=== PATIENT | female | born 1960 | race Caucasian/White ===

== ENCOUNTER 2017-03-21 06:22 | Emergency (ER) | payer MEDICARE ==
[2017-03-21] MEDS ORDERED: methylPREDNISolone SOD SUCCI 125 MG/2 ML VIAL IV STA (06:54)
[2017-03-21] MEDS ORDERED: EPINEPHrine 1 MG/ML 1 ML AMP SQ STA (06:54)
[2017-03-21] MEDS ORDERED: ALBUTEROL NEBULIZED 2.5 MG/3 ML INHALATION STA (06:54)
--- NOTE | 2017-03-21 06:56 | ED ---
General Adult HPI - General Source: patient, RN notes reviewed, old records reviewed Mode of arrival: ambulatory Limitations: no limitations <Gabriel Nettles - Last Filed: 03/21/17 06:54> <Brigido Hewitt - Last Filed: 03/21/17 08:14> - General Chief complaint: Upper Respiratory Infection Stated complaint: congestion Time Seen by Provider: 03/21/17 06:50 - History of Present Illness Initial comments: 56-year-old female presenting with 5 day history of dry cough. Patient is also had subjective fever and chills. She was seen in urgent care and diagnosed with viral illness. She has not been an antibiotic. Patient also complains of rhinorrhea, sore throat, generalized body aches. Patient has no known sick contacts. She has no diagnosis of asthma or COPD but she is a current smoker. She is currently trying to quit. No abdominal pain nausea vomiting. No diarrhea. (Gabriel Nettles) - Related Data Home Medications Medication Instructions Recorded Confirmed HYDROcodone/APAP 10-325MG [[place] 1 tab PO Q4HR PRN 03/17/15 04/27/15 10-325] Topiramate [Topamax] 50 mg PO BID PRN 03/17/15 04/27/15 Ibuprofen [Motrin] 800 cap PO Q8HR PRN 04/27/15 04/27/15 Guaifenesin/Dextromethorphan 5 ml PO Q6HR PRN 03/21/17 03/21/17 [Robitussin Cough-Chest Dm Liq] Methocarbamol [Robaxin] 500 mg PO BID PRN 03/21/17 03/21/17 guaiFENesin-DM 600/30MG [Mucinex 1 tab PO Q12HR PRN 03/21/17 03/21/17 Dm] Previous Rx's Medication Instructions Recorded Albuterol Inhaler [Ventolin Hfa 2 puff INHALATION Q4HR PRN #1 03/21/17 Inhaler] inhaler Azithromycin [Zithromax Z-pack] 250 mg PO DIRECTED #6 tab 03/21/17 predniSONE 20 mg PO BID #10 tab 03/21/17 Allergies Allergy/AdvReac Type Severity Reaction Status Date / Time tetracycline AdvReac Nausea & Verified 03/21/17 08:09 Vomiting Review of Systems ROS Other: All systems not noted in ROS Statement are negative. <ThoGabriel Ari - Last Filed: 03/21/17 06:54> ROS Other: All systems not noted in ROS Statement are negative. <HewittBrigido - Last Filed: 03/21/17 08:14> ROS Statement: Those systems with pertinent positive or pertinent negative responses have been documented in the HPI. Past Medical History Additional Past Medical History / Comment(s): BACK PAIN, History of Any Multi-Drug Resistant Organisms: None Reported Additional Past Surgical History / Comment(s): NECK SURGERY, tubal liagation, laproscopic surgery for ovarian cysts, Past Anesthesia/Blood Transfusion Reactions: No Reported Reaction Past Psychological History: Depression Smoking Status: Current every day smoker Past Alcohol Use History: Occasional Past Drug Use History: None Reported - Past Family History Mother Family Medical History: No Reported History Father Additional Family Medical History / Comment(s): lymphoma <PrasanthGabriel alberts - Last Filed: 03/21/17 06:54> General Exam Limitations: no limitations General appearance: alert, in no apparent distress Head exam: Present: atraumatic, normocephalic Eye exam: Present: normal appearance, PERRL ENT exam: Present: normal exam Neck exam: Present: normal inspection. Absent: tenderness, meningismus Respiratory exam: Present: wheezes, prolonged expiratory, other (Bronchospastic cough). Absent: rhonchi Cardiovascular Exam: Present: regular rate, normal rhythm GI/Abdominal exam: Present: soft. Absent: distended, tenderness, guarding Extremities exam: Present: normal inspection, normal capillary refill. Absent: pedal edema Back exam: Present: normal inspection, full ROM. Absent: tenderness Neurological exam: Present: alert, oriented X3, CN II-XII intact. Absent: motor sensory deficit Psychiatric exam: Present: normal affect, normal mood Skin exam: Present: warm, dry, intact. Absent: cyanosis, diaphoretic <Gabriel Nettles - Last Filed: 03/21/17 06:54> Vital Signs 03/21/17 03/21/17 03/21/17 06:28 07:23 07:33 Temperature 98.4 F Pulse Rate 88 72 72 Respiratory 18 Rate Blood Pressure 117/64 O2 Sat by Pulse 96 Oximetry Medical Decision Making <Gabriel Nettles - Last Filed: 03/21/17 06:54> - Lab Data Result diagrams: 03/21/17 07:20 03/21/17 07:20 <Brigido Hewitt - Last Filed: 03/21/17 08:14> - Medical Decision Making Patient reevaluated and resting comfortably in bed. Lung sounds are rhonchorous. No respiratory distress. Patient states she is trying to quit smoking. Patient updated on results and need for follow-up. (Brigido Hewitt) - Lab Data Lab Results 03/21/17 03/21/17 03/21/17 Range/Units 07:20 07:20 07:20 WBC 7.0 (3.8-10.6) k/uL RBC 4.42 (3.80-5.40) m/uL Hgb 14.0 (11.4-16.0) gm/dL Hct 41.9 (34.0-46.0) % MCV 94.7 (80.0-100.0) fL MCH 31.8 (25.0-35.0) pg MCHC 33.5 (31.0-37.0) g/dL RDW 12.6 (11.5-15.5) % Plt Count 246 (150-450) k/uL Neutrophils % 78 % Lymphocytes % 14 % Monocytes % 6 % Eosinophils % 1 % Basophils % 0 % Neutrophils # 5.5 (1.3-7.7) k/uL Lymphocytes # 1.0 (1.0-4.8) k/uL Monocytes # 0.4 (0-1.0) k/uL Eosinophils # 0.1 (0-0.7) k/uL Basophils # 0.0 (0-0.2) k/uL Sodium 142 (137-145) mmol/L Potassium 4.5 (3.5-5.1) mmol/L Chloride 110 H (98-107) mmol/L Carbon Dioxide 25 (22-30) mmol/L Anion Gap 7 mmol/L BUN 17 (7-17) mg/dL Creatinine 0.77 (0.52-1.04) mg/dL Est GFR (MDRD) Af Amer >60 (>60 ml/min/1.73 sqM) Est GFR (MDRD) Non-Af >60 (>60 ml/min/1.73 sqM) Glucose 94 (74-99) mg/dL Calcium 9.8 (8.4-10.2) mg/dL Total Bilirubin 0.4 (0.2-1.3) mg/dL AST 17 (14-36) U/L ALT 30 (9-52) U/L Alkaline Phosphatase 60 (38-126) U/L Total Protein 6.5 (6.3-8.2) g/dL Albumin 4.2 (3.5-5.0) g/dL Influenza Type A RNA Not Detected (Not Detectd) Influenza Type B (PCR) Not Detected (Not Detectd) - Radiology Data Interpreted by me: Chest x-ray shows no definite infiltrate. (Brigido Hewitt) Disposition <Gabriel Nettles - Last Filed: 03/21/17 06:54> Time of Disposition: 08:14 <Brigido Hewitt - Last Filed: 03/21/17 08:14> Clinical Impression: Bronchitis Disposition: HOME SELF-CARE Condition: Stable Instructions: Acute Bronchitis (ED), How to Stop Smoking (ED) Additional Instructions: Please follow-up with primary care physician in the next day or 2 for recheck. Return for difficulty breathing, uncontrolled fevers, worsening symptoms or other concerns. Discontinue smoking. Prescriptions: Albuterol Inhaler [Ventolin Hfa Inhaler] 2 puff INHALATION Q4HR PRN #1 inhaler PRN Reason: Dyspnea Azithromycin [Zithromax Z-pack] 250 mg PO DIRECTED #6 tab predniSONE 20 mg PO BID #10 tab Referrals: Randy Huntley DO [Primary Care Provider] - 1-2 days
[2017-03-21] MEDS ORDERED: IPRATROPIUM 0.5 MG/2.5 ML NEBU INHALATION STA (07:09)
[2017-03-21 07:36] LABS: Basophils % (A) 0 %; Eosinophils # (A) 0.1 k/uL (0-0.7); Eosinophils % (A) 1 %; HCT 41.9 % (34.0-46.0); Lymphocytes % (A) 14 %; MCH 31.8 pg (25.0-35.0); MCHC 33.5 g/dL (31.0-37.0); MCV 94.7 fL (80.0-100.0); Mean Platelet Volume 6.5; Monocytes # (A) 0.4 k/uL (0-1.0); Monocytes % (A) 6 %; Neutrophils # (A) 5.5 k/uL (1.3-7.7); Neutrophils % (A) 78 %; Platelet Count 246 k/uL (150-450); RBC 4.42 m/uL (3.80-5.40); RDW 12.6 % (11.5-15.5)
[2017-03-21 07:47] LABS: ALT 30 U/L (9-52); AST 17 U/L (14-36); Albumin 4.2 g/dL (3.5-5.0); Alkaline Phosphatase 60 U/L (38-126); Anion Gap 7 mmol/L; Blood Urea Nitrogen 17 mg/dL (7-17); Calcium 9.8 mg/dL (8.4-10.2); Carbon Dioxide 25 mmol/L (22-30); Chloride 110 mmol/L (98-107); Glucose 94 mg/dL (74-99); Potassium 4.5 mmol/L (3.5-5.1); Sodium 142 mmol/L (137-145); Total Bilirubin 0.4 mg/dL (0.2-1.3); Total Protein 6.5 g/dL (6.3-8.2)
--- NOTE | 2017-03-21 08:23 | XR ---
EXAMINATION TYPE: XR chest 2V DATE OF EXAM: 03/21/2017 COMPARISON: NONE HISTORY: Cough and congestion for one week per patient. Chest pain per order. TECHNIQUE: Frontal and lateral views of the chest are obtained. FINDINGS: There is no focal air space opacity, pleural effusion, or pneumothorax seen. The cardiac silhouette size is within normal limits. Anterior and posterior fusion hardware in the cervical spine is partially imaged. IMPRESSION: No suspicious acute pulmonary process.
[2017-03-21 08:25] VITALS: BP 103/58; PULSE 74; RESP 16; TEMP 98.3
== END 2017-03-21 08:24 | disposition home or self-care (01) ==
LOC: EC 06:22
DX: J40 Bronchitis, not specified as acute or chronic (principal); F17.200 Nicotine dependence, unspecified, uncomplicated; Z88.1 Allergy status to other antibiotic agents
CPT/HCPCS: 36415; 94640; 80053; 85025; 87502; 71046; 99284; 96374; J2930

== ENCOUNTER 2017-05-11 19:55 | Emergency (ER) | payer MEDICARE ==
[2017-05-11] MEDS ORDERED: SODIUM CHLORIDE 0.9% 1,000 ML IV STA (21:37)
[2017-05-11] MEDS ORDERED: ONDANSETRON 4 MG/2 ML VIAL IVP STA ×2 (21:37→23:52)
[2017-05-11] MEDS ORDERED: MORPHINE SULFATE 4 MG/ML SYRINGE IV STA ×2 (21:37→23:52)
[2017-05-11] MEDS ORDERED: RX INFO: IV CONTRAST WAS GIVEN 1 EACH MISC MISCELLANE PRN (21:37)
--- NOTE | 2017-05-11 21:39 | ED ---
General Adult HPI - General Chief complaint: Abdominal Pain Stated complaint: abdominal pain Time Seen by Provider: 05/11/17 21:31 Source: patient, RN notes reviewed Mode of arrival: ambulatory Limitations: no limitations - History of Present Illness Initial comments: 56-year-old female presents emergency department with a chief complaint of lower abdominal pain. Patient states that she started to have cramping in the lower abdomen this morning. She admits to nausea without vomiting. She states that she has not had any diarrhea. She states that it feels bloated than it is tender. She denies any changes in urination. Patient has not had any fever or chills. She was concerned due to the continued pain with her history so she thought that she should be seen. Patient states that she is not currently having any other symptoms. She states her pain is moderate in the lower abdomen. Patient denies any recent fever, chills, shortness of breath, chest pain, back pain, vomiting, numbness or tingling, dysuria or hematuria, constipation or diarrhea, headaches or visual changes, or any other current symptoms. - Related Data Home Medications Medication Instructions Recorded Confirmed HYDROcodone/APAP 10-325MG [[place] 1 tab PO QID PRN 03/17/15 05/11/17 10-325] Topiramate [Topamax] 50 mg PO BID PRN 03/17/15 05/11/17 Ibuprofen [Motrin] 800 cap PO TID PRN 04/27/15 05/11/17 Methocarbamol [Robaxin] 500 mg PO BID PRN 03/21/17 05/11/17 Previous Rx's Medication Instructions Recorded Ciprofloxacin HCl [Cipro] 500 mg PO Q12HR #14 tablet 05/11/17 Ibuprofen [Motrin] 600 mg PO Q6HR PRN #20 tab 05/11/17 Ondansetron Odt [Zofran ODT] 4 mg PO Q8HR PRN #20 tab 05/11/17 metroNIDAZOLE [Flagyl] 500 mg PO TID #21 tab 05/11/17 Allergies Allergy/AdvReac Type Severity Reaction Status Date / Time tetracycline AdvReac Nausea & Verified 05/11/17 21:18 Vomiting Review of Systems ROS Statement: Those systems with pertinent positive or pertinent negative responses have been documented in the HPI. ROS Other: All systems not noted in ROS Statement are negative. Past Medical History Additional Past Medical History / Comment(s): BACK PAIN, diverticulitis. History of Any Multi-Drug Resistant Organisms: None Reported Additional Past Surgical History / Comment(s): NECK SURGERY, tubal liagation, laproscopic surgery for ovarian cysts, Past Anesthesia/Blood Transfusion Reactions: No Reported Reaction Past Psychological History: Depression Smoking Status: Current every day smoker Past Alcohol Use History: Occasional Past Drug Use History: None Reported - Past Family History Mother Family Medical History: No Reported History Father Additional Family Medical History / Comment(s): lymphoma General Exam - General Exam Comments Initial Comments: General: The patient is awake and alert, in no distress, and does not appear acutely ill. Eye: Pupils are equal, round and reactive to light, extra-ocular movements are intact; there is normal conjunctiva bilaterally. No signs of icterus. Ears, nose, mouth and throat: There are moist mucous membranes and no oral lesions. Neck: The neck is supple, there is no tenderness. Cardiovascular: There is a regular rate and rhythm. No murmur, rub or gallop is appreciated. Respiratory: Lungs are clear to auscultation, respirations are non-labored, breath sounds are equal. No wheezes, stridor, rales, or rhonchi. Gastrointestinal: Soft, non-distended, minimal tenderness to lower quadrants of the abdomen without masses or organomegaly noted. There is no rebound or guarding present. No CVA tenderness. Bowel sounds are unremarkable. Back: There is no tenderness to palpation in the midline. There is no obvious deformity. No rashes noted. Musculoskeletal: Normal ROM, no tenderness, There is no pedal edema. There is no calf tenderness or swelling. Sensation intact. Pulses equal bilaterally 2+. Neurological: CN II-XII intact, There are no obvious motor or sensory deficits. Coordination appears grossly intact. Speech is normal. Skin: Skin is warm and dry and no rashes or lesions are noted. Psychiatric: Cooperative, appropriate mood & affect, normal judgment. Limitations: no limitations Course Vital Signs 05/11/17 05/11/17 20:39 23:39 Temperature 98.7 F 98.7 F Pulse Rate 87 85 Respiratory 24 16 Rate Blood Pressure 112/65 100/57 O2 Sat by Pulse 98 96 Oximetry Medical Decision Making - Medical Decision Making 56-year-old female presents to the emergency department with a chief complaint of abdominal pain. This time patient's lab work, CT, vital signs have been reviewed. Patient is feeling much better in the room. At this time we did discuss that we will start her on antibiotics we discussed using her at home pain medication for pain control. We did discuss that this could worsen and her hospitalization when to return. Patient stated that she understood and she is in agreement with this plan. All questions have been answered. She will be discharged. - Lab Data Result diagrams: 05/11/17 22:00 05/11/17 22:00 Lab Results 05/11/17 05/11/17 05/11/17 Range/Units 22:00 22:00 22:00 WBC 9.7 (3.8-10.6) k/uL RBC 4.41 (3.80-5.40) m/uL Hgb 14.3 (11.4-16.0) gm/dL Hct 40.1 (34.0-46.0) % MCV 90.9 (80.0-100.0) fL MCH 32.4 (25.0-35.0) pg MCHC 35.7 (31.0-37.0) g/dL RDW 12.5 (11.5-15.5) % Plt Count 244 (150-450) k/uL Neutrophils % 78 % Lymphocytes % 14 % Monocytes % 6 % Eosinophils % 1 % Basophils % 0 % Neutrophils # 7.5 (1.3-7.7) k/uL Lymphocytes # 1.4 (1.0-4.8) k/uL Monocytes # 0.6 (0-1.0) k/uL Eosinophils # 0.1 (0-0.7) k/uL Basophils # 0.0 (0-0.2) k/uL PT 9.7 (9.0-12.0) sec INR 1.0 (<1.2) APTT 22.4 (22.0-30.0) sec Sodium 139 (137-145) mmol/L Potassium 3.6 (3.5-5.1) mmol/L Chloride 109 H (98-107) mmol/L Carbon Dioxide 22 (22-30) mmol/L Anion Gap 8 mmol/L BUN 15 (7-17) mg/dL Creatinine 0.60 (0.52-1.04) mg/dL Est GFR (CKD-EPI)AfAm >90 (>60 ml/min/1.73 sqM) Est GFR (CKD-EPI)NonAf >90 (>60 ml/min/1.73 sqM) Glucose 103 H (74-99) mg/dL Plasma Lactic Acid Loc (0.7-2.0) mmol/L Calcium 9.7 (8.4-10.2) mg/dL Total Bilirubin 0.6 (0.2-1.3) mg/dL AST 13 L (14-36) U/L ALT 19 (9-52) U/L Alkaline Phosphatase 64 (38-126) U/L Total Protein 6.4 (6.3-8.2) g/dL Albumin 4.1 (3.5-5.0) g/dL Amylase 36 (30-110) U/L Lipase 22 L (23-300) U/L Urine Color Urine Appearance (Clear) Urine pH (5.0-8.0) Ur Specific [place] (1.001-1.035) Urine Protein (Negative) Urine Glucose (UA) (Negative) Urine Ketones (Negative) Urine Blood (Negative) Urine Nitrite (Negative) Urine Bilirubin (Negative) Urine Urobilinogen (<2.0) mg/dL Ur Leukocyte Esterase (Negative) Urine RBC (0-5) /hpf Urine WBC (0-5) /hpf Ur Squamous Epith Cells (0-4) /hpf Urine Mucus (None) /hpf Urine HCG, Qual (Not Detectd) 05/11/17 05/11/17 05/11/17 Range/Units 22:00 22:34 22:34 WBC (3.8-10.6) k/uL RBC (3.80-5.40) m/uL Hgb (11.4-16.0) gm/dL Hct (34.0-46.0) % MCV (80.0-100.0) fL MCH (25.0-35.0) pg MCHC (31.0-37.0) g/dL RDW (11.5-15.5) % Plt Count (150-450) k/uL Neutrophils % % Lymphocytes % % Monocytes % % Eosinophils % % Basophils % % Neutrophils # (1.3-7.7) k/uL Lymphocytes # (1.0-4.8) k/uL Monocytes # (0-1.0) k/uL Eosinophils # (0-0.7) k/uL Basophils # (0-0.2) k/uL PT (9.0-12.0) sec INR (<1.2) APTT (22.0-30.0) sec Sodium (137-145) mmol/L Potassium (3.5-5.1) mmol/L Chloride (98-107) mmol/L Carbon Dioxide (22-30) mmol/L Anion Gap mmol/L BUN (7-17) mg/dL Creatinine (0.52-1.04) mg/dL Est GFR (CKD-EPI)AfAm (>60 ml/min/1.73 sqM) Est GFR (CKD-EPI)NonAf (>60 ml/min/1.73 sqM) Glucose (74-99) mg/dL Plasma Lactic Acid Loc 0.5 L (0.7-2.0) mmol/L Calcium (8.4-10.2) mg/dL Total Bilirubin (0.2-1.3) mg/dL AST (14-36) U/L ALT (9-52) U/L Alkaline Phosphatase (38-126) U/L Total Protein (6.3-8.2) g/dL Albumin (3.5-5.0) g/dL Amylase (30-110) U/L Lipase (23-300) U/L Urine Color Yellow Urine Appearance Cloudy H (Clear) Urine pH 5.5 (5.0-8.0) Ur Specific [place] 1.020 (1.001-1.035) Urine Protein Trace H (Negative) Urine Glucose (UA) Negative (Negative) Urine Ketones Negative (Negative) Urine Blood Trace H (Negative) Urine Nitrite Negative (Negative) Urine Bilirubin Negative (Negative) Urine Urobilinogen <2.0 (<2.0) mg/dL Ur Leukocyte Esterase Small H (Negative) Urine RBC 1 (0-5) /hpf Urine WBC 4 (0-5) /hpf Ur Squamous Epith Cells 18 H (0-4) /hpf Urine Mucus Many H (None) /hpf Urine HCG, Qual Not Detected (Not Detectd) - Radiology Data Radiology results: report reviewed, image reviewed Disposition Clinical Impression: Acute diverticulitis Disposition: HOME SELF-CARE Condition: Stable Instructions: Diverticulitis (ED), Diverticulitis Diet (ED) Additional Instructions: Please use medication as discussed. Please follow up with family doctor if symptoms have not improved over the next two days. Please return to the emergency room if your symptoms increase or worsen or for any other concerns. Prescriptions: Ciprofloxacin HCl [Cipro] 500 mg PO Q12HR #14 tablet Ibuprofen [Motrin] 600 mg PO Q6HR PRN #20 tab PRN Reason: Pain metroNIDAZOLE [Flagyl] 500 mg PO TID #21 tab Ondansetron Odt [Zofran ODT] 4 mg PO Q8HR PRN #20 tab PRN Reason: Nausea Referrals: Randy Huntley DO [Primary Care Provider] - 1-2 days Time of Disposition: 23:54
[2017-05-11] MEDS ORDERED: MORPHINE SULFATE/PF 10MG/10ML VL IV STA (21:52)
[2017-05-11 22:11] LABS: Basophils % (A) 0 %; Eosinophils # (A) 0.1 k/uL (0-0.7); Eosinophils % (A) 1 %; HCT 40.1 % (34.0-46.0); HGB 14.3 gm/dL (11.4-16.0); Lymphocytes # (A) 1.4 k/uL (1.0-4.8); Lymphocytes % (A) 14 %; MCH 32.4 pg (25.0-35.0); MCHC 35.7 g/dL (31.0-37.0); MCV 90.9 fL (80.0-100.0); Mean Platelet Volume 6.3; Monocytes # (A) 0.6 k/uL (0-1.0); Monocytes % (A) 6 %; Neutrophils # (A) 7.5 k/uL (1.3-7.7); Neutrophils % (A) 78 %; Platelet Count 244 k/uL (150-450); RBC 4.41 m/uL (3.80-5.40); RDW 12.5 % (11.5-15.5); WBC 9.7 k/uL (3.8-10.6)
[2017-05-11 22:19] LABS: Partial Thromboplastin Time 22.4 sec (22.0-30.0); Prothrombin Time 9.7 sec (9.0-12.0)
[2017-05-11 22:22] LABS: ALT 19 U/L (9-52); AST 13 U/L (14-36); Albumin 4.1 g/dL (3.5-5.0); Alkaline Phosphatase 64 U/L (38-126); Amylase 36 U/L (30-110); Anion Gap 8 mmol/L; Blood Urea Nitrogen 15 mg/dL (7-17); Calcium 9.7 mg/dL (8.4-10.2); Carbon Dioxide 22 mmol/L (22-30); Chloride 109 mmol/L (98-107); Glucose 103 mg/dL (74-99); Lipase 22 U/L (23-300); Potassium 3.6 mmol/L (3.5-5.1); Sodium 139 mmol/L (137-145); Total Bilirubin 0.6 mg/dL (0.2-1.3); Total Protein 6.4 g/dL (6.3-8.2)
[2017-05-11 23:08] LABS: Appearance,Urine Cloudy (Clear); Bilirubin,Urine Negative (Negative); Blood,Urine Trace (Negative); Color,Urine Yellow; Glucose,Urine (UA) Negative (Negative); Ketones,Urine Negative (Negative); Leukocyte Esterase,Urine Small (Negative); Mucus,Urine Many /hpf; Nitrite,Urine Negative (Negative); PH, Urine 5.5 (5.0-8.0); Protein,Urine Trace (Negative); RBC,Urine 1 /hpf (0-5); Squamous Epithelial Cell,Urine 18 /hpf (0-4); Urobilinogen,Urine <2.0 mg/dL (<2.0); WBC,Urine 4 /hpf (0-5)
[2017-05-11 23:39] VITALS: RESP 16
--- NOTE | 2017-05-11 23:39 | CT ---
EXAMINATION TYPE: CT abdomen pelvis w con DATE OF EXAM: 05/11/2017 COMPARISON: 03/17/2015 HISTORY: Lower abd pain CT DLP: 944 mGycm Automated exposure control for dose reduction was used. TECHNIQUE: Helical acquisition of images was performed from the lung bases through the pelvis. CONTRAST: Performed without Oral Contrast and with IV Contrast, patient injected with 100 mL of Omnipaque 300. FINDINGS: There is some linear density at the posterior lung bases. There is no pulmonary consolidation. There is no pleural effusion. Heart size is normal. There is a less than 1 cm cyst in several locations in the liver. Spleen appears normal. There is no sign of pancreatic mass. Gallbladder appears normal. Bile ducts are not dilated. There is no adrenal mass. The kidneys show satisfactory contrast opacification. There is no hydroneph rosis. Abdominal aorta is atheromatous. There is no retroperitoneal adenopathy. There is fat stranding around the proximal sigmoid colon. There are multiple diverticula in the proxi mal sigmoid colon and descending colon. I see no sign of free air. There is a mild amount of free flu id in the pelvis. The appendix appears normal. The uterus is anteverted and retroflexed. There are multiple small calcified uterine fibroids. I see no focal bony destructive process. There is no evidence of a pelvic mass. IMPRESSION: THERE IS EVIDENCE OF DIVERTICULITIS IN THE LOWER DESCENDING COLON AND PROXIMAL SIGMOID COLON THAT IS NEW COMPARED TO OLD EXAM. THERE IS CLEARING OF THE DIVERTICULITIS IN THE MID DESCENDING COLON COMPARE D TO OLD EXAM. THERE IS MILD FREE FLUID IN THE PELVIS THAT IS INCREASED COMPARED TO OLD EXAM. UTERINE FIBROIDS. SMAL L HEPATIC CYSTS. THERE IS NEW SUBSEGMENTAL ATELECTASIS AT THE LUNG BASES COMPARED TO OLD EXAM.
[2017-05-11] MEDS ORDERED: metroNIDAZOLE 500 MG TAB PO STA (23:52)
[2017-05-11] MEDS ORDERED: CIPROFLOXACIN HCL 500 MG TAB PO STA (23:52)
[2017-05-12] MEDS ORDERED: MORPHINE SULFATE/PF 10MG/10ML VL IV STA (00:29)
[2017-05-12 00:58] VITALS: BP 107/53; PULSE 78; TEMP 98.3
== END 2017-05-12 00:57 | disposition home or self-care (01) ==
LOC: EC 19:55
DX: K57.92 Diverticulitis of intestine, part unspecified, without perforation or abscess without bleeding (principal); F17.200 Nicotine dependence, unspecified, uncomplicated; Z88.1 Allergy status to other antibiotic agents; Z53.20 Procedure and treatment not carried out because of patient's decision for unspecified reasons; Z53.8 Procedure and treatment not carried out for other reasons
CPT/HCPCS: 36415; 80053; 82150; 83605; 83690; 85025; 85610; 85730; 81001; 81025; 87040; 74177; 99284; 96374; 96375; 96376; 96361; J2405 ×2; Q9967; J2270

== ENCOUNTER 2017-11-07 08:12 | Observation (INO) | payer MEDICARE ==
--- NOTE | 2017-11-07 08:44 | ED ---
General Adult HPI - General Chief complaint: Chest Pain Stated complaint: Chest Pain Source: patient Mode of arrival: wheelchair Limitations: no limitations - History of Present Illness Initial comments: Dictation was produced using [employer] dictation software. please excuse any grammatical, word or spelling errors. Chief Complaint: 57-year-old female with past medical history of tobacco abuse and chronic neck pain presents with chest pain. History of Present Illness: Patient states her chest pain as sharp. She states it's constant without any exacerbating or mitigating factors. She reports that she's been having on-and-off episodes of chest pain over the last 3 days. States that the pain is located to the anterior chest with radiation to the left upper neck.. Denies any paresthesias to the shoulder. She does not complain of associated nausea, vomiting or diaphoresis. Denies any cardiac history. She does have family history of cardiac disease amongst her paternal side. There is history of an uncle who had stroke and other cardiac disease before the age of 45. Patient is a chronic tobacco user. The ROS documented in this emergency department record has been reviewed and confirmed by me. Those systems with pertinent positive or negative responses have been documented in the HPI. All other systems are other negative and/or noncontributory. - Related Data Home Medications Medication Instructions Recorded Confirmed HYDROcodone/APAP 10-325MG [[place] 1 tab PO QID PRN 03/17/15 11/07/17 10-325] Ibuprofen [Motrin] 800 cap PO TID PRN 04/27/15 11/07/17 Methocarbamol [Robaxin] 500 mg PO TID PRN 03/21/17 11/07/17 Butalb/Acetaminophen/Caffeine 1 cap PO Q8H PRN 11/07/17 11/07/17 [Fioricet 50-300-40 mg Capsule] Allergies Allergy/AdvReac Type Severity Reaction Status Date / Time tetracycline AdvReac Nausea & Verified 11/07/17 08:50 Vomiting Review of Systems ROS Statement: Those systems with pertinent positive or pertinent negative responses have been documented in the HPI. ROS Other: All systems not noted in ROS Statement are negative. Past Medical History Additional Past Medical History / Comment(s): BACK PAIN, diverticulitis. History of Any Multi-Drug Resistant Organisms: None Reported Additional Past Surgical History / Comment(s): NECK SURGERY, tubal liagation, laproscopic surgery for ovarian cysts, Past Anesthesia/Blood Transfusion Reactions: No Reported Reaction Past Psychological History: Depression Smoking Status: Current every day smoker Past Alcohol Use History: Occasional Past Drug Use History: None Reported - Past Family History Mother Family Medical History: No Reported History Father Additional Family Medical History / Comment(s): lymphoma General Exam - General Exam Comments Initial Comments: PHYSICAL EXAM: General Impression: Alert and oriented x3, not in acute distress HEENT: Normocephalic atraumatic, extra-ocular movements intact, pupils equal and reactive to light bilaterally, mucous membranes moist. Cardiovascular: Heart regular rate and rhythm, S1&S2 audible, no murmurs, rubs or gallops Chest: Lungs clear to auscultation bilaterally, no rhonchi, no wheeze, no rales Abdomen: Bowel sounds present, abdomen soft, non-tender, non-distended, no organomegaly Musculoskeletal: Pulses present and equal in all extremities, no peripheral edema Motor: Power 5/5 bilaterally, no focal deficits noted Neurological: CN II-XII grossly intact, no focal motor or sensory deficits noted Skin: Intact with no visualized rashes Psych: Normal affect and mood Limitations: no limitations Course Vital Signs 11/07/17 11/07/17 11/07/17 08:20 09:10 10:00 Temperature 99.2 F Pulse Rate 80 75 72 Respiratory 20 18 20 Rate Blood Pressure 130/77 132/74 107/66 O2 Sat by Pulse 100 99 98 Oximetry Medical Decision Making - Medical Decision Making ED course: 57-year-old female presents with atypical chest pain. She does however have multiple risk factors signs upon arrival are within acceptable limits. Laboratory evaluation obtained. CBC is unremarkable. Coag panel is unremarkable. Metabolic panel obtained showing findings within acceptable limits. Abdominal labs negative. First set of cardiac enzymes are negative. Clinical decision making was explained to the patient. Patient has multiple risk factors. Her clinical presentation is consistent with atypical chest pain with typical features. She does have extensive history of smoking. Discussed with patient disposition plans. Discussed with patient that our recommendation would be to have her admitted to observation for serial troponins given that patient's age and risk factors. Alternative was discussed patient to be discharged for outpatient management. She opted for observation admission with serial troponins. Patient given aspirin. She is given Toradol shot for pain control. Patient admitted to observation for serial troponins. Patient understandable and agreeable to plan. All questions and concerns were addressed. EKG Interpretation: A 12 lead EKG was obtained. It was interpreted by myself and attending physician. There is a P wave before every QRS complex. Rate is 79. Rhythm is normal sinus rhythm,. Interval 132, QRS 72, QTc 444. QT is not prolonged. No ST segment depression or elevation. No old EKG for comparison. Overall, this EKG is unremarkable - Lab Data Result diagrams: 11/07/17 08:35 11/07/17 08:35 Lab Results 11/07/17 11/07/17 11/07/17 Range/Units 08:35 08:35 08:35 WBC 4.5 (3.8-10.6) k/uL RBC 4.54 (3.80-5.40) m/uL Hgb 14.4 (11.4-16.0) gm/dL Hct 43.1 (34.0-46.0) % MCV 94.9 (80.0-100.0) fL MCH 31.8 (25.0-35.0) pg MCHC 33.5 (31.0-37.0) g/dL RDW 13.1 (11.5-15.5) % Plt Count 262 (150-450) k/uL Neutrophils % 68 % Lymphocytes % 21 % Monocytes % 8 % Eosinophils % 1 % Basophils % 1 % Neutrophils # 3.1 (1.3-7.7) k/uL Lymphocytes # 1.0 (1.0-4.8) k/uL Monocytes # 0.3 (0-1.0) k/uL Eosinophils # 0.1 (0-0.7) k/uL Basophils # 0.0 (0-0.2) k/uL PT (9.0-12.0) sec INR (<1.2) APTT (22.0-30.0) sec Sodium 142 (137-145) mmol/L Potassium 4.1 (3.5-5.1) mmol/L Chloride 110 H (98-107) mmol/L Carbon Dioxide 25 (22-30) mmol/L Anion Gap 7 mmol/L BUN 13 (7-17) mg/dL Creatinine 0.68 (0.52-1.04) mg/dL Est GFR (CKD-EPI)AfAm >90 (>60 ml/min/1.73 sqM) Est GFR (CKD-EPI)NonAf >90 (>60 ml/min/1.73 sqM) Glucose 90 (74-99) mg/dL Calcium 9.4 (8.4-10.2) mg/dL Magnesium 2.1 (1.6-2.3) mg/dL Total Bilirubin 0.4 (0.2-1.3) mg/dL AST 17 (14-36) U/L ALT 28 (9-52) U/L Alkaline Phosphatase 56 (38-126) U/L Total Creatine Kinase 55 (30-135) U/L CK-MB (CK-2) 0.6 (0.0-2.4) ng/mL CK-MB (CK-2) Rel Index 1.1 Troponin I <0.012 (0.000-0.034) ng/mL Total Protein 6.3 (6.3-8.2) g/dL Albumin 4.0 (3.5-5.0) g/dL 11/07/17 Range/Units 08:35 WBC (3.8-10.6) k/uL RBC (3.80-5.40) m/uL Hgb (11.4-16.0) gm/dL Hct (34.0-46.0) % MCV (80.0-100.0) fL MCH (25.0-35.0) pg MCHC (31.0-37.0) g/dL RDW (11.5-15.5) % Plt Count (150-450) k/uL Neutrophils % % Lymphocytes % % Monocytes % % Eosinophils % % Basophils % % Neutrophils # (1.3-7.7) k/uL Lymphocytes # (1.0-4.8) k/uL Monocytes # (0-1.0) k/uL Eosinophils # (0-0.7) k/uL Basophils # (0-0.2) k/uL PT 9.5 (9.0-12.0) sec INR 0.9 (<1.2) APTT 22.4 (22.0-30.0) sec Sodium (137-145) mmol/L Potassium (3.5-5.1) mmol/L Chloride (98-107) mmol/L Carbon Dioxide (22-30) mmol/L Anion Gap mmol/L BUN (7-17) mg/dL Creatinine (0.52-1.04) mg/dL Est GFR (CKD-EPI)AfAm (>60 ml/min/1.73 sqM) Est GFR (CKD-EPI)NonAf (>60 ml/min/1.73 sqM) Glucose (74-99) mg/dL Calcium (8.4-10.2) mg/dL Magnesium (1.6-2.3) mg/dL Total Bilirubin (0.2-1.3) mg/dL AST (14-36) U/L ALT (9-52) U/L Alkaline Phosphatase (38-126) U/L Total Creatine Kinase (30-135) U/L CK-MB (CK-2) (0.0-2.4) ng/mL CK-MB (CK-2) Rel Index Troponin I (0.000-0.034) ng/mL Total Protein (6.3-8.2) g/dL Albumin (3.5-5.0) g/dL Disposition Clinical Impression: Chest pain Disposition: ADMITTED IP TO THIS HOSP Condition: Fair Referrals: Randy Huntley DO [Primary Care Provider] - 1-2 days Decision Time: 10:50
[2017-11-07 08:51] LABS: Basophils % (A) 1 %; Eosinophils # (A) 0.1 k/uL (0-0.7); Eosinophils % (A) 1 %; HCT 43.1 % (34.0-46.0); HGB 14.4 gm/dL (11.4-16.0); Lymphocytes % (A) 21 %; MCH 31.8 pg (25.0-35.0); MCHC 33.5 g/dL (31.0-37.0); MCV 94.9 fL (80.0-100.0); Mean Platelet Volume 6.3; Monocytes # (A) 0.3 k/uL (0-1.0); Monocytes % (A) 8 %; Neutrophils # (A) 3.1 k/uL (1.3-7.7); Neutrophils % (A) 68 %; Platelet Count 262 k/uL (150-450); RBC 4.54 m/uL (3.80-5.40); RDW 13.1 % (11.5-15.5); WBC 4.5 k/uL (3.8-10.6)
--- NOTE | 2017-11-07 08:56 | XR ---
EXAMINATION TYPE: XR chest 2V DATE OF EXAM: 11/07/2017 COMPARISON: 03/21/2017 INDICATION: Chest pain TECHNIQUE: Frontal and lateral views of the chest are obtained. FINDINGS: The heart size is normal. The pulmonary vasculature is normal. The lungs are clear. IMPRESSION: 1. No acute pulmonary process.
[2017-11-07 08:57] LABS: ALT 28 U/L (9-52); AST 17 U/L (14-36); Alkaline Phosphatase 56 U/L (38-126); Anion Gap 7 mmol/L; Blood Urea Nitrogen 13 mg/dL (7-17); Calcium 9.4 mg/dL (8.4-10.2); Carbon Dioxide 25 mmol/L (22-30); Chloride 110 mmol/L (98-107); Glucose 90 mg/dL (74-99); Magnesium 2.1 mg/dL (1.6-2.3); Potassium 4.1 mmol/L (3.5-5.1); Sodium 142 mmol/L (137-145); Total Bilirubin 0.4 mg/dL (0.2-1.3); Total Protein 6.3 g/dL (6.3-8.2)
[2017-11-07 09:03] LABS: INR 0.9 (<1.2); Partial Thromboplastin Time 22.4 sec (22.0-30.0); Prothrombin Time 9.5 sec (9.0-12.0)
[2017-11-07 09:18] LABS: Creatine Kinase 55 U/L (30-135)
[2017-11-07 09:30] LABS: Creatine Kinase MB 0.6 ng/mL (0.0-2.4); Troponin I <0.012 ng/mL (0.000-0.034)
[2017-11-07] MEDS ORDERED: ASPIRIN 81 MG PO STA (10:47)
[2017-11-07] MEDS ORDERED: KETOROLAC 30 MG/ML 1 ML VIAL IVP STA (10:48)
[2017-11-07] MEDS ORDERED: NITROGLYCERIN SL TABS 0.4 MG TAB SUBLINGUAL PRN (10:48)
[2017-11-07] MEDS ORDERED: METHOCARBAMOL 500 MG TAB PO PRN (15:06)
[2017-11-07] MEDS ORDERED: IBUPROFEN 800 MG TAB PO PRN (15:06)
[2017-11-07] MEDS ORDERED: BUTALB/APAP/CAFF 50-325-40MG TAB PO PRN (15:06)
[2017-11-07] MEDS: HYDROcodone/APAP 10-325MG 1 EACH TAB PO PRN (15:14)
[2017-11-07 16:03] LABS: Creatine Kinase 44 U/L (30-135)
[2017-11-07 16:12] LABS: Creatine Kinase MB 0.4 ng/mL (0.0-2.4); Troponin I <0.012 ng/mL (0.000-0.034)
[2017-11-07] MEDS ORDERED: HYDROmorphone 1 MG/ML 1 ML SYRINGE IVP PRN (17:26)
[2017-11-07] MEDS ORDERED: diphenhydrAMINE 50 MG/ML 1 ML VIAL IVP PRN (17:26)
[2017-11-07] MEDS ORDERED: HEPARIN SODIUM,PORCINE 5,000 UNIT/ML 1 ML VIAL IV PRN (17:40)
[2017-11-07] MEDS ORDERED: HEPARIN SODIUM,PORCINE 5,000 UNIT/ML 1 ML VIAL IV ONE (17:40)
[2017-11-07] MEDS ORDERED: ALPRAZolam 0.25 MG TAB PO PRN (17:41)
[2017-11-07] MEDS ORDERED: TEMAZEPAM 15 MG CAP PO PRN (17:41)
[2017-11-07] MEDS ORDERED: HEPARIN SOD,PORK IN 0.45% NACL 25,000 UNIT in 0.45% NACL 1 500ML.BAG IV SCH (17:45)
--- NOTE | 2017-11-07 18:12 | HP ---
HISTORY AND PHYSICAL CHIEF COMPLAINTS: Chest pain. HISTORY OF PRESENT ILLNESS: This 57-year-old woman with past medical history of asthma, GERD, DJD, history of pneumonia, being followed by Dr. Huntley in the outpatient setting was complaining of severe chest pain. The pain is felt in the lower part of the chest which is a pressure type of pain which is radiating to both lower parts of the chest, and the pain is excruciating and the pain is on and off for the last 3 days. Because of increasing difficulty, the patient came to [facility] and admitted to the hospital for further evaluation and treatment. Pain is radiating sometimes in the left upper neck, also some. Otherwise, there is no history of nausea, vomiting. No history of any diaphoresis at this time. Patient is complaining of significant stress also. Initial troponins are negative. EKG shows some ST-T changes. PAST MEDICAL HISTORY: Asthma, GERD, history of pneumonia, history of depression, history of diverticulitis. MEDICATIONS ARE: 1. Robaxin 500 mg t.i.d. p.r.n. 2. Fioricet 1 capsule q8h p.r.n. 3. Motrin 800 mg t.i.d. p.r.n. 4. [place] 10 mg q.i.d. p.r.n. ALLERGIES: TETRACYCLINE. FAMILY HISTORY: Family history of hypertension, history of lymphoma in the father, history of CHF, history of coronary artery disease in father and brother. SOCIAL HISTORY: History of smoking. Occasional alcohol intake. REVIEW OF SYSTEMS: ENT: No diminished vision. No diminished hearing. CARDIOVASCULAR: As mentioned earlier. RESPIRATORY: As mentioned earlier. GI: No nausea or vomiting. no dysuria. Nervous system: No numbness or weakness. Allergy/Immunology: No asthma or hayfever. Musculoskeletal: As mentioned earlier. Hematology/Oncology: No history of anemia. Endocrine: No history of diabetes or hypothyroidism. Constitutional: As mentioned earlier. Dermatology: Negative. Rheumatology: Negative. Psychiatry: As mentioned earlier. PHYSICAL EXAMINATION: Alert and oriented times three. Pulse 75. Blood pressure 88/56, respiration 18, temperature 98.4, pulse ox 94% on room air. HEENT: Conjunctivae normal. Oral mucosa moist. Neck is no jugular venous distention. No carotid bruit. No lymph node enlargement. Cardiac system: S1, S2. Respiratory: Breath sounds diminished in the bases. No rhonchi. No crackles. ABDOMEN: Soft, minimal tenderness in the epigastrium. Otherwise no guarding, no rigidity. No mass palpable. Legs no edema, no swelling. Nervous system: Higher functions as mentioned earlier. Moves all 4 limbs. No focal motor or sensory deficits. Lymphatics: No lymph nodes palpable in the neck, axillae or groin. SKIN: No ulcer, rash or bleeding. LABS: CBC within normal limits and chloride is 110. Troponins are negative. EKG reviewed. Chest x-ray reviewed and showed no acute abnormality. ASSESSMENT: 1. Chest pain possible unstable angina. 2. Epigastric pain, rule out gastroesophageal reflux disease. 3. History of ongoing nicotine dependence. 4. History of asthma. 5. Gastroesophageal reflux disease. 6. Degenerative joint disease. 7. History pneumonia. 8. History of diverticulitis. 9. History of chronic pain, degenerative joint disease of the cervical spine. 10.History of macular degeneration. 11.Glaucoma. 12.History of depression. RECOMMENDATIONS AND DISCUSSION: In this 57-year-old woman who presented with multiple complex medical issues, we will monitor the patient closely, continue the current medications, management and symptomatic treatment. I would recommend rule out myocardial infarction, unstable angina protocol, IV heparin and cardiology consultation. Other than that, I would also recommend ultrasound of the abdomen also to rule out the possibly gallbladder pathology. Proton pump inhibitors may be used. Overall prognosis guarded because of multiple complex medical issues. See orders for details. Further recommendations to follow. Discussed at length with the family. Understands and agrees. MMODL / IJN: [id number] /
[2017-11-07] MEDS: NICOTINE 14MG/24HR PATCH TRANSDERM SCH (18:22)
[2017-11-07] MEDS: PANTOPRAZOLE 40 MG/10 ML VIAL IVP SCH (19:59)
[2017-11-07 20:31] LABS: Creatine Kinase 42 U/L (30-135)
[2017-11-07 20:42] LABS: Creatine Kinase MB 0.5 ng/mL (0.0-2.4); Troponin I <0.012 ng/mL (0.000-0.034)
[2017-11-08 00:23] LABS: Creatine Kinase 39 U/L (30-135)
[2017-11-08 00:36] LABS: Creatine Kinase MB 0.4 ng/mL (0.0-2.4); Troponin I <0.012 ng/mL (0.000-0.034)
--- NOTE | 2017-11-08 08:06 | US ---
EXAMINATION TYPE: US abdomen limited DATE OF EXAM: 11/08/2017 COMPARISON: CT 2018 CLINICAL HISTORY: epigastric pain. Chest and epigastric pain x 3 days EXAM MEASUREMENTS: Liver Length: 12.2 cm Gallbladder Wall: 0.2 cm CBD: 0.6 cm Right Kidney: 9.9 x 4.4 x 4.0 cm Pancreas: visualized portions wnl, head and tail limited by overlying midline bowel gas, duct seen m easuring 0.3cm Liver: 1.0 x 0.7cm small cystic lesion seen left lobe, otherwise liver appears wnl Gallbladder: wnl Evidence for sonographic Haung's sign: no CBD: measures in upper limits of normal at 0.6cm Right Kidney: wnl Limited views of the pancreas are unremarkable. The liver is normal in size without biliary dilatation. The gallbladder is unremarkable without cholelithiasis. The gallbladder wall measures 2 mm. The dista l common hepatic duct measures 6 mm. There is no sonographic Huang's sign. The right kidney is unremarkable. IMPRESSION: UNREMARKABLE RIGHT UPPER QUADRANT ULTRASOUND.
[2017-11-08 08:18] LABS: Basophils % (A) 1 %; Eosinophils # (A) 0.1 k/uL (0-0.7); Eosinophils % (A) 3 %; HCT 42.2 % (34.0-46.0); HGB 14.1 gm/dL (11.4-16.0); Lymphocytes # (A) 1.2 k/uL (1.0-4.8); Lymphocytes % (A) 33 %; MCH 31.9 pg (25.0-35.0); MCHC 33.4 g/dL (31.0-37.0); MCV 95.5 fL (80.0-100.0); Mean Platelet Volume 6.7; Monocytes # (A) 0.2 k/uL (0-1.0); Monocytes % (A) 6 %; Neutrophils % (A) 56 %; Platelet Count 247 k/uL (150-450); RBC 4.42 m/uL (3.80-5.40); RDW 12.9 % (11.5-15.5); WBC 3.6 k/uL (3.8-10.6)
[2017-11-08 08:30] LABS: Anion Gap 6 mmol/L; Blood Urea Nitrogen 19 mg/dL (7-17); Calcium 9.1 mg/dL (8.4-10.2); Carbon Dioxide 26 mmol/L (22-30); Chloride 110 mmol/L (98-107); Cholesterol 215 mg/dL (<200); Glucose 85 mg/dL (74-99); HDL Cholesterol 63 mg/dL (40-60); LDL Cholesterol,Calculated 135 mg/dL (0-99); Potassium 4.3 mmol/L (3.5-5.1); Sodium 142 mmol/L (137-145); Triglycerides 86 mg/dL (<150)
[2017-11-08] MEDS ORDERED: MAG HYDROX/AL HYDROX/SIMETH 30 ML, HYOSCYAMINE ELIXIR 10 ML, CIMETIDINE HCL 300 MG, LID... PO ONE ×4 (08:45)
[2017-11-08] MEDS ORDERED: ASPIRIN 325 MG TAB PO SCH (09:00)
--- NOTE | 2017-11-08 09:32 | P.CRDCN ---
History of Present Illness History of present illness: This is Dr. Thomas dictating a consult on this patient The patient was interviewed and examined by me IMPRESSION / ASSESSMENT: No evidence for acute myocardial infarction Likely noncardiac pain D-dimer is are also normal Suggest trying a GI cocktail Upper back exercises 2-D echo and Doppler study today PLAN: 2-D echo and Doppler study Follow-up with Dr. Gaviria May go home from a cardiac standpoint HPI Recurrent chest discomfort almost continuous for the last 3-4 days tenderness in the costochondral junctions discomfort in the upper and mid back, interscapular. No other associated symptoms normal cardiac enzymes Past history of asthma depression never to colitis and fibromyalgia and neck surgery as well as GERD She states it feels like a heartburn ROS: No fever chills or rigors, no cough, phlegm or expectoration, no nausea, vomiting or diarrhea, no hematuria, dysuria, no musculoskeletal complaints, no strokes or seizures, no skin lesions. EXAMINATION Afebrile at 7.8F pulse rate in the 70s blood pressure 96/64 mmHg normal respirations Breath sounds are clear no rhonchi no crackles or line heart sounds S1 and S2 are normal no murmurs or gallops no rub Abdomen soft nontender Extremities are warm no edema Osteochondral junctions of the left-sided tender Discomfort in the upper back intrascapular REVIEW OF LABS, ECG Hemoglobin 14, electrolytes normal, troponins normal 4 Total cholesterol 215 LDL 135 HDL 63 Twelve-lead ECG shows sinus rhythm 0.[address] depression nonspecific ST-T changes narrow QRS normal [place] Past Medical History Past Medical History: Asthma, Eye Disorder, GERD/Reflux, Osteoarthritis (OA), Pneumonia Additional Past Medical History / Comment(s): 2001 pt fell down stairs at her workplace and has had Lumbar and cervical pain ever since with chronic headaches as well, arthritis in back, neck and fingers, diverticular disease, told once when that she had alittle coliits, PUD, bronchitis, starting of bilateral macular degeneration/glaucoma. History of Any Multi-Drug Resistant Organisms: None Reported Past Surgical History: Orthopedic Surgery Additional Past Surgical History / Comment(s): Cervical surgery x2, laproscopic surgery for ovarian cysts, EGD, colonoscopy. Past Anesthesia/Blood Transfusion Reactions: No Reported Reaction Additional Past Anesthesia/Blood Transfusion Reaction / Comment(s): Pt is slow to wake after surgery. Smoking Status: Current every day smoker - Past Family History Mother Family Medical History: Hypertension Father Family Medical History: Cancer, Congestive Heart Failure (CHF) Additional Family Medical History / Comment(s): Father had lymphoma and went into CHF and at the age of 72 yrs. Medications and Allergies Home Medications Medication Instructions Recorded Confirmed Type HYDROcodone/APAP 10-325MG [[place] 1 tab PO QID PRN 03/17/15 11/07/17 History 10-325] Ibuprofen [Motrin] 800 cap PO TID PRN 04/27/15 11/07/17 History Methocarbamol [Robaxin] 500 mg PO TID PRN 03/21/17 11/07/17 History Butalb/Acetaminophen/Caffeine 1 cap PO Q8H PRN 11/07/17 11/07/17 History [Fioricet 50-300-40 mg Capsule] Allergies Allergy/AdvReac Type Severity Reaction Status Date / Time tetracycline AdvReac Nausea & Verified 11/07/17 08:50 Vomiting Physical Exam Vitals: Vital Signs Temp Pulse Pulse Pulse Resp BP BP 11/08/17 04:00 97.8 F 75 18 11/08/17 00:00 98.1 F 85 18 11/07/17 20:00 18 11/07/17 19:32 98.4 F 69 18 11/07/17 15:54 75 18 11/07/17 15:47 98.5 F 75 18 88/56 11/07/17 11:49 16 11/07/17 11:45 98.6 F 72 18 11/07/17 11:00 98.2 F 85 20 115/74 11/07/17 10:00 72 20 107/66 BP Pulse Ox 11/08/17 04:00 96/64 98 11/08/17 00:00 94/56 100 11/07/17 20:00 11/07/17 19:32 95/61 95 11/07/17 15:54 11/07/17 15:47 95 11/07/17 11:49 11/07/17 11:45 124/82 97 11/07/17 11:00 99 11/07/17 10:00 98 Intake and Output 11/07/17 11/08/17 11/08/17 22:59 06:59 14:59 Intake Total 490 112.014 Balance 490 112.014 Intake: Intake, IV Titration 112.014 Amount Heparin Sod,Pork in 0.45% 112.014 NaCl 25,000 unit In 0.45 % NaCl 1 500ml.bag @ 12 UNITS/KG/HR 15.24 mls/hr IV .Q24H [facility] Rx#: [id number] Oral 490 Other: Voiding Method Toilet Toilet # Voids 1 1 Results 11/08/17 07:57 11/08/17 07:57 Cardiac Enzymes 11/07/17 11/07/17 11/07/17 Range/Units 15:03 19:49 23:54 CK-MB (CK-2) 0.4 0.5 0.4 (0.0-2.4) ng/mL Troponin I <0.012 <0.012 <0.012 (0.000-0.034) ng/mL Coagulation 11/07/17 11/08/17 Range/Units 23:54 07:57 APTT 38.3 H 42.4 H (22.0-30.0) sec Lipids 11/08/17 Range/Units 07:57 Triglycerides 86 (<150) mg/dL Cholesterol 215 H (<200) mg/dL HDL Cholesterol 63 H (40-60) mg/dL CBC 11/08/17 Range/Units 07:57 WBC 3.6 L (3.8-10.6) k/uL RBC 4.42 (3.80-5.40) m/uL Hgb 14.1 (11.4-16.0) gm/dL Hct 42.2 (34.0-46.0) % Plt Count 247 (150-450) k/uL Comprehensive Metabolic Panel 11/08/17 Range/Units 07:57 Sodium 142 (137-145) mmol/L Potassium 4.3 (3.5-5.1) mmol/L Chloride 110 H (98-107) mmol/L Carbon Dioxide 26 (22-30) mmol/L BUN 19 H (7-17) mg/dL Creatinine 0.79 (0.52-1.04) mg/dL Glucose 85 (74-99) mg/dL Calcium 9.1 (8.4-10.2) mg/dL Current Medications Generic Name Dose Route Start Last Admin Trade Name Freq PRN Reason Stop Dose Admin Acetaminophen/Butalbital/Caffeine 1 each 11/07/17 15:06 Fioricet 50-325-40 PO Q8H PRN Pain Hydrocodone Bitart/Acetaminophen 1 each 11/07/17 15:06 11/07/17 15:14 [place] 10 PO 1 each QID PRN Administration Pain Alprazolam 0.25 mg 11/07/17 17:41 Xanax PO TID PRN Anxiety Aspirin 325 mg 11/08/17 09:00 Aspirin PO DAILY FLAKO Diphenhydramine HCl 25 mg 11/07/17 17:26 Benadryl IVP Q6HR PRN Allergy Symptoms Hydromorphone HCl 0.5 mg 11/07/17 17:26 Dilaudid IVP Q6HR PRN Pain Ibuprofen 800 mg 11/07/17 15:06 Motrin PO TID PRN Pain Methocarbamol 500 mg 11/07/17 15:06 11/07/17 17:49 Robaxin PO 500 mg TID PRN Administration Muscle Spasm Nicotine 1 patch 11/07/17 17:45 11/07/17 18:22 Habitrol 14mg/24hr Patch TRANSDERM 1 patch DAILY [facility] Administration Nitroglycerin 0.4 mg 11/07/17 10:48 Nitrostat SUBLINGUAL Q5M PRN Chest Pain Pantoprazole Sodium 40 mg 11/07/17 21:00 11/07/17 19:59 Protonix IVP 40 mg BID [facility] Administration Temazepam 15 mg 11/07/17 17:41 Restoril PO HS PRN Insomnia Intake and Output 11/07/17 11/08/17 11/08/17 22:59 06:59 14:59 Intake Total 490 112.014 Balance 490 112.014 Intake: Intake, IV Titration 112.014 Amount Heparin Sod,Pork in 0.45% 112.014 NaCl 25,000 unit In 0.45 % NaCl 1 500ml.bag @ 12 UNITS/KG/HR 15.24 mls/hr IV .Q24H [facility] Rx#: [id number] Oral 490 Other: Voiding Method Toilet Toilet # Voids 1 1 11/08/17 07:57 11/08/17 07:57
[2017-11-08] MEDS: PANTOPRAZOLE 40 MG/10 ML VIAL IVP SCH (09:47)
[2017-11-08] MEDS: NICOTINE 14MG/24HR PATCH TRANSDERM SCH (09:47)
[2017-11-08] MEDS: HYDROcodone/APAP 10-325MG 1 EACH TAB PO PRN (09:49)
[2017-11-08 09:53] VITALS: RESP 16
--- NOTE | 2017-11-08 11:00 | P.DS ---
Providers Date of admission: 11/07/17 10:48 Attending physician: Cheng Avalos Consults: 11/07/17 17:15 Consult Physician Routine Consulting Provider: Tyson Proctor Consult Reason/Comments: chest pain Do you want consulting provider notified?: Yes 11/07/17 17:39 Consult Physician Routine Consulting Provider: Ty Mccrary Consult Reason/Comments: chest pain Do you want consulting provider notified?: Yes Primary care physician: [facility] Course: 57-year-old female admitted for Chest pain which is [place] skeletal nature and reproducible from her upper back. Patient follows up with neurology in the PCP for this as an outpatient. Acute coronary syndromes were ruled out and patient was cleared by cardiology. Ruled out pulmonary embolism. Rule out cholecystitis. Patient will follow with PCP as an outpatient. Please refer to dictation of Dr. Mccrary for further details of hospitalization course and other chronic medical problems. Patient Condition at Discharge: Fair Plan - Discharge Summary Discharge Rx Participant: No New Discharge Prescriptions: No Action HYDROcodone/APAP 10-325MG [[place] 10-325] 1 tab PO QID PRN PRN Reason: Pain Ibuprofen [Motrin] 800 cap PO TID PRN PRN Reason: Pain Methocarbamol [Robaxin] 500 mg PO TID PRN PRN Reason: Muscle Spasm Butalb/Acetaminophen/Caffeine [Fioricet 50-300-40 mg Capsule] 1 cap PO Q8H PRN PRN Reason: Pain Discharge Medication List HYDROcodone/APAP 10-325MG [[place] 10-325] 1 tab PO QID PRN 03/17/15 [History] Ibuprofen [Motrin] 800 cap PO TID PRN 04/27/15 [History] Methocarbamol [Robaxin] 500 mg PO TID PRN 03/21/17 [History] Butalb/Acetaminophen/Caffeine [Fioricet 50-300-40 mg Capsule] 1 cap PO Q8H PRN 11/07/17 [History] Follow up Appointment(s)/Referral(s): Randy Huntley DO [Primary Care Provider] - 1-2 days Patient Instructions/Handouts: Chest Pain (DC) Activity/Diet/Wound Care/Special Instructions: Patient and spouse requesting Dr. Proctor at time of discharge for follow up regardless of carbon lamp cleaner that rounds during admission.
[2017-11-08 12:19] VITALS: BP 91/59; PULSE 59; TEMP 98.2
--- NOTE | 2017-11-08 14:33 | ECHOF ---
Referral Reason:chest pain MEASUREMENTS -------- HEIGHT: 160.0 cm WEIGHT: 63.0 kg BP: RVIDd: 2.1 cm (< 3.3) IVSd: 0.8 cm (0.6 - 1.1) LVIDd: 3.9 cm (3.9 - 5.3) LVPWd: 1.1 cm (0.6 - 1.1) IVSs: 1.5 cm LVIDs: 2.0 cm LVPWs: 1.6 cm Ao Diam: 2.7 cm (2.0 - 3.7) AV Cusp: 1.9 cm (1.5 - 2.6) LA Diam: 2.4 cm (2.7 - 3.8) MV EXCURSION: 14.577 mm (> 18.000) MV EF SLOPE: 130 mm/s (70 - 150) EPSS: 0.6 cm MV E Wallace: 0.73 m/s MV DecT: 169 ms MV A Wallace: 0.50 m/s MV E/A Ratio: 1.48 RAP: 5.00 mmHg RVSP: 10.25 mmHg FINDINGS -------- Sinus rhythm. This was a technically good study. The left ventricular size is normal. Left ventricular wall thickness is normal. Overall left vent ricular systolic function is normal with, an EF between 55 - 60 %. The right ventricle is normal in size and function. The left atrium is normal in size. The right atrium is normal in size. The aortic valve is trileaflet, and appears structurally normal. No aortic stenosis or regurgitation. Mild mitral regurgitation is present. Mild tricuspid regurgitation present. The right ventricular systolic pressure, as measured by Doppl er, is 10.25mmHg. Pulmonic valve appears structurally normal. The aortic root size is normal. Normal inferior vena cava with normal inspiratory collapse consistent with estimated right atrial pre ssure of 5 mmHg. The pericardium is normal. CONCLUSIONS -------- 1. Sinus rhythm. 2. This was a technically good study. 3. The left ventricular size is normal. 4. Left ventricular wall thickness is normal. 5. Overall left ventricular systolic function is normal with, an EF between 55 - 60 %. 6. The right ventricle is normal in size and function. 7. The left atrium is normal in size. 8. The right atrium is normal in size. 9. The aortic valve is trileaflet, and appears structurally normal. No aortic stenosis or regurgitati on. 10. Mild mitral regurgitation is present. 11. Mild tricuspid regurgitation present. 12. The right ventricular systolic pressure, as measured by Doppler, is 10.25mmHg. 13. Pulmonic valve appears structurally normal. 14. The aortic root size is normal. 15. Normal inferior vena cava with normal inspiratory collapse consistent with estimated right atrial pressure of 5 mmHg. 16. The pericardium is normal. CREATIVE RESOURCE MANAGER: Adeola Cortez RDCS
== END 2017-11-08 14:40 | disposition home or self-care (01) ==
LOC: EC 08:12 → 3OBS 10:48
PROVIDERS: ADMIT Hospitalist; ATTEND Hospitalist
DX: R07.89 Other chest pain (principal); R10.13 Epigastric pain; G89.29 Other chronic pain; M54.2 Cervicalgia; F32.9 Major depressive disorder, single episode, unspecified; F17.200 Nicotine dependence, unspecified, uncomplicated; K57.90 Diverticulosis of intestine, part unspecified, without perforation or abscess without bleeding; M47.812 Spondylosis without myelopathy or radiculopathy, cervical region; M47.816 Spondylosis without myelopathy or radiculopathy, lumbar region; M19.049 Primary osteoarthritis, unspecified hand; K21.9 Gastro-esophageal reflux disease without esophagitis; F43.9 Reaction to severe stress, unspecified; H40.9 Unspecified glaucoma; H35.30 Unspecified macular degeneration; J45.909 Unspecified asthma, uncomplicated; Z87.01 Personal history of pneumonia (recurrent); Z88.1 Allergy status to other antibiotic agents; Z98.51 Tubal ligation status; Z87.11 Personal history of peptic ulcer disease; Z82.3 Family history of stroke; Z82.49 Family history of ischemic heart disease and other diseases of the circulatory system; Z80.7 Family history of other malignant neoplasms of lymphoid, hematopoietic and related tissues
CPT/HCPCS: 99285 ×2; 96375 ×3; 96365; 96366 ×2; 96376 ×2; 36415; 93005; 93306; 85379; 80061; 80053; 80048; 82550; 82553; 83735; 84484; 85025 ×2; 85610; 85730 ×2; 71046; 76705; G0378 ×2; S4990 ×2; J1644 ×2; J1885; C9113 ×2

== ENCOUNTER 2018-08-06 18:27 | Emergency (ER) | payer MEDICARE ==
[2018-08-06 18:30] VITALS: BP 124/82; PULSE 87; RESP 18; TEMP 98.4
[2018-08-06] MEDS ORDERED: PROPARACAINE 0.5% OPHTH DROPS 15 ML BTL LEFT EYE STA (18:54)
[2018-08-06] MEDS ORDERED: DIPH,PERTUS(ACELL)TETVAC-LF 0.5 ML VIAL IM ONE (19:39)
[2018-08-06] MEDS ORDERED: KETOROLAC 60 MG/2 ML VIAL IM STA (20:04)
--- NOTE | 2018-08-06 20:40 | ED ---
General Adult HPI - General Chief complaint: Eye Problems Stated complaint: Scratched eye Time Seen by Provider: 08/06/18 18:53 Source: patient, RN notes reviewed, old records reviewed Mode of arrival: ambulatory Limitations: no limitations - History of Present Illness Initial comments: 58 year-old female patient sent to ED with left-sided pain. Patient reports that when she took out her contacts she scratched her eye. Patient reports that she has had pain for approximately 3 hours. He said her eye is watering she has some mild blurry vision from that. When she blinks she states that her vision is at baseline. Patient has a secondary complaint of chronic lumbar back pain. Patient was a Toradol shot. Patient force that she has sciatica, states that she is having typical symptoms which are common and not concerning for her. Patient reports left paralumbar pain which radiates down her left posterior thigh. Patient denies any loss of bowel or bladder control. Denies any paresthesias, saddle anesthesia, lower extremity weakness. Denies any other complaints at this time. Systemic: Pt denies fatigue, fever/chills, rash. Pt denies weakness, night sweats, weight loss. Neuro: Pt denies headache, visual disturbances, syncope or pre-syncope. HEENT: Pt denies otalgia, rhinorrhea, pharyngitis or notable lymphadenopathy. Cardiopulmonary: Pt denies chest pain, SOB, heart palpitations, dyspnea on exertion. Abdominal/GI: Pt denies abdominal pain, n/v/d. : Pt denies dysuria, burning w/ urination, frequency/urgency. Denies new onset urinary or bowel incontinence. MSK: Pt denies myalgia, loss of strength or function in extremities. Neuro: Pt denies new onset weakness, paresthesias. - Related Data Home Medications Medication Instructions Recorded Confirmed HYDROcodone/APAP 10-325MG [[place] 1 tab PO QID PRN 03/17/15 11/07/17 10-325] Ibuprofen [Motrin] 800 cap PO TID PRN 04/27/15 11/07/17 Methocarbamol [Robaxin] 500 mg PO TID PRN 03/21/17 11/07/17 Butalb/Acetaminophen/Caffeine 1 cap PO Q8H PRN 11/07/17 11/07/17 [Fioricet 50-300-40 mg Capsule] Previous Rx's Medication Instructions Recorded Gentamicin 0.3% Ophth Oint [[place] 1 applic LEFT EYE Q8H 5 Days #1 08/06/18 0.3% Ophth Oint] tube Allergies Allergy/AdvReac Type Severity Reaction Status Date / Time tetracycline AdvReac Nausea & Verified 08/06/18 18:30 Vomiting Review of Systems ROS Statement: Those systems with pertinent positive or pertinent negative responses have been documented in the HPI. ROS Other: All systems not noted in ROS Statement are negative. Past Medical History Past Medical History: Asthma, Eye Disorder, GERD/Reflux, Osteoarthritis (OA), Pneumonia Additional Past Medical History / Comment(s): 2001 pt fell down stairs at her workplace and has had Lumbar and cervical pain ever since with chronic headaches as well, arthritis in back, neck and fingers, diverticular disease, told once when that she had alittle coliits, PUD, bronchitis, starting of bilateral macular degeneration/glaucoma. History of Any Multi-Drug Resistant Organisms: None Reported Past Surgical History: Orthopedic Surgery Additional Past Surgical History / Comment(s): Cervical surgery x2, laproscopic surgery for ovarian cysts, EGD, colonoscopy. Past Anesthesia/Blood Transfusion Reactions: No Reported Reaction Additional Past Anesthesia/Blood Transfusion Reaction / Comment(s): Pt is slow to wake after surgery. Past Psychological History: Depression Smoking Status: Current every day smoker Past Alcohol Use History: None Reported Past Drug Use History: None Reported - Past Family History Mother Family Medical History: Hypertension Father Family Medical History: Cancer, Congestive Heart Failure (CHF) Additional Family Medical History / Comment(s): Father had lymphoma and went into CHF and at the age of 72 yrs. General Exam - General Exam Comments Initial Comments: Constitutional: NAD, AOX3, Pt has pleasant affect. HEENT: NC/AT, trachea midline, neck supple, no lymphadenopathy. Posterior pharynx non erythematous, without exudates. External ears appear normal, without discharge. Mucous membranes moist. Eyes PERRLA, EOM intact. Left eye has mild injection. EOM intact. Fluorescein stain revealed mild corneal abrasion at approximately 3:00. No other areas of first attempt take noted. Bev sign negative. There is no scleral icterus. No pallor noted. Cardiopulmonary: RRR, no murmurs, rubs or gallops, no JVD noted. Lungs CTAB in anterior and posterior alejandra. No peripheral edema. Abdominal exam: Abdomen soft and non-distended. Abdomen non-tender to palpation in all 4 quadrants. Bowel sounds active in LLQ. No hepatosplenomegaly. No ecchymosis Neuro: CN II-XII grossly intact. No nuchal rigidity. No raccon eyes, no katz sign, no hemotympanum. No cervical spinal tenderness. MSK: No posterior calf tenderness bilaterally, homans sign negative bilaterally. Posterior tibialis and radial pulse +2 bilaterally. Sensation intact in upper and lower extremities. Full active ROM in upper and lower extremities, 5/5 stregnth. Left straight leg raise positive. Straight leg raise negative. Left paralumbar region mild tenderness to palpation. No midline cervical thoracic lumbar tenderness to palpation. Limitations: no limitations Course Vital Signs 08/06/18 18:28 Temperature 98.4 F Pulse Rate 87 Respiratory 18 Rate Blood Pressure 124/82 O2 Sat by Pulse 95 Oximetry Medical Decision Making - Medical Decision Making 58 year-old female patient sent to ED with left-sided pain. Patient reports that when she took out her contacts she scratched her eye. Patient reports that she has had pain for approximately 3 hours. He said her eye is watering she has some mild blurry vision from that. When she blinks she states that her vision is at baseline. Patient has a secondary complaint of chronic lumbar back pain. Patient was a Toradol shot. Patient force that she has sciatica, states that she is having typical symptoms which are common and not concerning for her. Patient reports left paralumbar pain which radiates down her left posterior t high. Patient denies any loss of bowel or bladder control. Denies any paresthesias, saddle anesthesia, lower extremity weakness. Denies any other complaints at this time. Pt VSS, afebrile. Physical exam displayed: Left eye has mild injection. EOM intact. Fluorescein stain revealed mild corneal abrasion at approximately 3:00. No other areas of first attempt take noted. Bev sign negative. Patient tetanus updated. Patient will be prescribed gentamicin ointment. 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 Case discussed with Dr. Olivera. Disposition Clinical Impression: Corneal abrasion, Chronic back pain Disposition: HOME SELF-CARE Condition: Stable Instructions (If sedation given, give patient instructions): Corneal Abrasion (ED) Additional Instructions: Patient to adhere to previously discussed treatment plan and will take medication(s) as directed. Patient to follow up with PCP in 1-2 days. Patient to return to ED if symptoms do not improve. Take medication as directed. Follow-up with primary care provider in 1-2 days. Follow-up with ophthalmology consult in 1-2 days. Return to ER if condition worsens in anyway. Prescriptions: Gentamicin 0.3% Ophth Oint [Gentak 0.3% Ophth Oint] 1 applic LEFT EYE Q8H 5 Days #1 tube Is patient prescribed a controlled substance at d/c from ED?: No Referrals: Randy Huntley DO [Primary Care Provider] - 1-2 days Hank Maldonado MD [STAFF PHYSICIAN] - 1-2 days
== END 2018-08-06 20:46 | disposition home or self-care (01) ==
LOC: EC 18:27
DX: S05.02XA Injury of conjunctiva and corneal abrasion without foreign body, left eye, initial encounter (principal); M54.5 Low back pain; G89.29 Other chronic pain; M19.90 Unspecified osteoarthritis, unspecified site; F17.200 Nicotine dependence, unspecified, uncomplicated; Z88.1 Allergy status to other antibiotic agents; Z53.29 Procedure and treatment not carried out because of patient's decision for other reasons
CPT/HCPCS: 99283; 96372; J1885

== ENCOUNTER 2020-11-17 12:57 | Emergency (ER) | payer MEDICARE ==
[2020-11-17 13:01] VITALS: TEMP 98
[2020-11-17] MEDS ORDERED: KETOROLAC 15 MG/ML 1 ML VIAL IM STA (13:30)
--- NOTE | 2020-11-17 13:53 | XR ---
EXAMINATION TYPE: XR foot complete RT DATE OF EXAM: 11/17/2020 CLINICAL HISTORY: pain TECHNIQUE: Frontal, lateral and oblique images of the right foot are obtained. COMPARISON: None. FINDINGS: There is no acute fracture/dislocation evident. The joint spaces appear within normal connor its. The overlying soft tissue appears unremarkable. IMPRESSION: There is no acute fracture or dislocation. ICD 10 NO FRACTURE, INITIAL EVALUATION
--- NOTE | 2020-11-17 14:02 | ED ---
Lower Extremity Injury HPI - General Chief Complaint: Extremity Injury, Lower Stated Complaint: Rt Foot Injury Time Seen by Provider: 11/17/20 13:14 Source: patient, RN notes reviewed Mode of arrival: wheelchair Limitations: no limitations - History of Present Illness Initial Comments: Patient is a 60-year-old female that presents to emergency department complaining of right foot pain. She notes that she broke her big toe approximately 2 weeks ago has been wrapping it per her doctor's instructions. She notes that she comes in today with increasing pain to the third and fourth toe of her right foot and foot pain. She denied any injury or trauma. She notes that they're just sore when she walks and gets worse with walking. She denied taking anything for pain at home. She was otherwise well-appearing 60-year-old female in no apparent distress or pain. She denied chest pain first breath headache nausea vomiting diarrhea constipation fever fatigue chills. - Related Data Home Medications Medication Instructions Recorded Confirmed HYDROcodone/APAP 10-325MG [[place] 1 tab PO QID PRN 03/17/15 11/07/17 10-325] Ibuprofen [Motrin] 800 cap PO TID PRN 04/27/15 11/07/17 methocarbamoL [Robaxin] 500 mg PO TID PRN 03/21/17 11/07/17 Butalb/Acetaminophen/Caffeine 1 cap PO Q8H PRN 11/07/17 11/07/17 [Fioricet 50-300-40 mg Capsule] Previous Rx's Medication Instructions Recorded Gentamicin 0.3% Ophth Oint [[place] 1 applic LEFT EYE Q8H 5 Days #1 08/06/18 0.3% Ophth Oint] tube Allergies Allergy/AdvReac Type Severity Reaction Status Date / Time tetracycline AdvReac Nausea & Verified 11/17/20 13:01 Vomiting Review of Systems ROS Statement: Those systems with pertinent positive or pertinent negative responses have been documented in the HPI. ROS Other: All systems not noted in ROS Statement are negative. Past Medical History Past Medical History: Asthma, Eye Disorder, GERD/Reflux, Osteoarthritis (OA), Pneumonia Additional Past Medical History / Comment(s): 2001 pt fell down stairs at her workplace and has had Lumbar and cervical pain ever since with chronic headaches as well, arthritis in back, neck and fingers, diverticular disease, told once when that she had alittle coliits, PUD, bronchitis, starting of bilateral macular degeneration/glaucoma. History of Any Multi-Drug Resistant Organisms: None Reported Past Surgical History: Orthopedic Surgery Additional Past Surgical History / Comment(s): Cervical surgery x2, laproscopic surgery for ovarian cysts, EGD, colonoscopy. Past Anesthesia/Blood Transfusion Reactions: No Reported Reaction Additional Past Anesthesia/Blood Transfusion Reaction / Comment(s): Pt is slow to wake after surgery. Past Psychological History: Depression Smoking Status: Current every day smoker Past Alcohol Use History: None Reported Past Drug Use History: None Reported - Past Family History Mother Family Medical History: Hypertension Father Family Medical History: Cancer, Congestive Heart Failure (CHF) Additional Family Medical History / Comment(s): Father had lymphoma and went into CHF and at the age of 72 yrs. General Exam Limitations: no limitations General appearance: alert, in no apparent distress Head exam: Present: atraumatic, normocephalic, normal inspection Eye exam: Present: normal appearance, PERRL, EOMI. Absent: scleral icterus, conjunctival injection, periorbital swelling Neck exam: Present: normal inspection Respiratory exam: Present: normal lung sounds bilaterally. Absent: respiratory distress, wheezes, rales, rhonchi, stridor Cardiovascular Exam: Present: regular rate, normal rhythm, normal heart sounds. Absent: systolic murmur, diastolic murmur, rubs, gallop, clicks Right Foot/Toe exam: Present: normal inspection, full ROM. Absent: tenderness (Over the third and fourth digit), swelling, abrasion, laceration, ecchymosis, deformity, crepitus, dislocation, erythema, amputation, puncture wound, foreign body, calcaneal tenderness, tenderness at base of 5th metatarsal Neurological exam: Present: alert, oriented X3 Psychiatric exam: Present: normal affect, normal mood Skin exam: Present: warm, dry, intact, normal color. Absent: rash Course Vital Signs 11/17/20 12:58 Temperature 98.0 F Pulse Rate 73 Respiratory 20 Rate Blood Pressure 159/88 O2 Sat by Pulse 99 Oximetry Procedures - Orthopedic Splinting/Casting Injury #1 Side: right Lower Extremity Injury Location: foot Lower Extremity Immobilizer: post-op shoe Medical Decision Making - Medical Decision Making 60-year-old female complaining of right foot and toe pain. Broke great toe 2 weeks ago. X-ray the right foot and toes, 15 mg of Toradol ordered. X-rays negative for any acute fractures or dislocations. Patient most likely has several sprained toes from altering walking due to broken great toe. Case discussed with Dr. Ogden, patient discharge home with follow-up to orthopedics as needed. - Radiology Data Radiology results: report reviewed, image reviewed Right foot exam: No acute fractures or dislocations. Disposition Clinical Impression: Foot sprain, Sprain of toe, fourth, right, Sprain of toe, third, right Disposition: HOME SELF-CARE Condition: Stable Instructions (If sedation given, give patient instructions): Foot Sprain (ED) Additional Instructions: Please return to the Emergency Department if symptoms worsen or any other concerns. Follow-up with primary care 1-2 days. Ice compress elevate. Follow-up with orthopedics as needed. Take Tylenol Motrin as needed for pain. Is patient prescribed a controlled substance at d/c from ED?: No Referrals: Randy Huntley DO [Primary Care Provider] - 1-2 days Yovani Castellon MD [Medical Doctor] - 1-2 days Time of Disposition: 14:15
[2020-11-17 14:40] VITALS: BP 143/82; PULSE 76; RESP 18
== END 2020-11-17 14:41 | disposition home or self-care (01) ==
LOC: EC 12:57
DX: S93.691A Other sprain of right foot, initial encounter (principal); J45.909 Unspecified asthma, uncomplicated; K21.9 Gastro-esophageal reflux disease without esophagitis; M19.90 Unspecified osteoarthritis, unspecified site; F32.9 Major depressive disorder, single episode, unspecified; F17.200 Nicotine dependence, unspecified, uncomplicated; Z88.1 Allergy status to other antibiotic agents; Z87.11 Personal history of peptic ulcer disease; X58.XXXA Exposure to other specified factors, initial encounter
CPT/HCPCS: 99283; 96372; 73630; J1885

== ENCOUNTER → 2023-03-21 | Outpatient (CLI) | payer MEDICARE ==
--- NOTE | 2023-03-21 13:25 | XR ---
EXAMINATION TYPE: XR cervical spine 5 views comp, XR knee 4V bilateral, XR lumbosacral spine 5 views DATE OF EXAM: 03/21/2023 COMPARISON: None HISTORY: 62-year-old female M54.2CERVICALGIA,M54.50LOW BACK PA,M25.562,M25.561 FINDINGS: Cervical spine: Patient status post C5-C7 ACDF as well as posterior cervical fusion. There is moderate degenerative d isc disease and endplate spondylosis above the fusion at C4-C5 and also below the fusion at C7-T1. Ov erall alignment is maintained. The heterotopic ossification anteriorly at the C4 level may impress on to the back wall of the hypopharynx. Normal odontoid view. Limited assessment of the left-sided neuro foramen due to the degree of obliquity. No bony neuroforaminal narrowing on the right. Lumbar spine: Slight levoconvex curvature lumbar spine. 5 lumbar type vertebral bodies. Hypertrophic facet arthropa thy mid to lower lumbar spine. There is mild to moderate degenerative disc disease L2-L3 and L3-L4. V ertebral body heights are preserved and alignment is maintained. Knees: Tricompartmental joint spaces appear maintained. No joint effusion on either side. Extensor mechanism s appear intact. No acute fracture, subluxation, dislocation. The patella remain appropriately situat ed along the trochlear grooves. IMPRESSION: 1. Cervical spine: Status post C5-C7 ACDF and posterior cervical fusion with moderate degenerative di sc disease both above and below the fusion (at C4-C5 and C7-T1, respectively). No malalignment. Limit ed assessment of the left-sided neuroforamen due to the degree of obliquity. 2. Lumbar spine: Hypertrophic facet arthropathy mid to lower lumbar spine. No vertebral compression c ollapse or malalignment. [id number] degenerative disc disease L2-L3 and L3-L4. 3. Knees: No acute osseous abnormality seen on either side.
== END | disposition home or self-care (01) ==
LOC: RADXRMAIN 11:23
PROVIDERS: ATTEND Psychiatry & Neurology Neurology
DX: M47.816 Spondylosis without myelopathy or radiculopathy, lumbar region (principal); M50.321 Other cervical disc degeneration at C4-C5 level; M51.36 Other intervertebral disc degeneration, lumbar region; M50.33 Other cervical disc degeneration, cervicothoracic region; M25.562 Pain in left knee; M25.561 Pain in right knee; Z98.1 Arthrodesis status
CPT/HCPCS: 72050; 72110

== ENCOUNTER 2023-04-08 09:36 | Emergency (ER) | payer MEDICARE ==
[2023-04-08 10:04] VITALS: TEMP 98.3
--- NOTE | 2023-04-08 10:16 | ED ---
Lower Extremity Injury HPI - General Chief Complaint: Extremity Injury, Lower Stated Complaint: R foot/toe injury Time Seen by Provider: 04/08/23 09:42 Source: patient, RN notes reviewed Mode of arrival: ambulatory Limitations: no limitations - History of Present Illness Initial Comments: 8-year-old female presents emergency department complaint of right foot injury. She states she was moving her dryer when it fell onto her foot. She complains of distal foot pain, toe pain digits 1 through 4. Patient denies any paresthesias denies any lacerations no other complaints. - Related Data Home Medications Medication Instructions Recorded Confirmed HYDROcodone/APAP 10-325MG [[place] 1 tab PO QID PRN 03/17/15 11/07/17 10-325] Ibuprofen [Motrin] 800 cap PO TID PRN 04/27/15 11/07/17 methocarbamoL [Robaxin] 500 mg PO TID PRN 03/21/17 11/07/17 Butalb/Acetaminophen/Caffeine 1 cap PO Q8H PRN 11/07/17 11/07/17 [Fioricet 50-300-40 mg Capsule] Previous Rx's Medication Instructions Recorded Gentamicin 0.3% Ophth Oint [[place] 1 applic LEFT EYE Q8H 5 Days #1 08/06/18 0.3% Ophth Oint] tube Allergies Allergy/AdvReac Type Severity Reaction Status Date / Time tetracycline AdvReac Nausea & Verified 04/03/21 20:19 Vomiting Review of Systems ROS Statement: Those systems with pertinent positive or pertinent negative responses have been documented in the HPI. ROS Other: All systems not noted in ROS Statement are negative. Past Medical History Past Medical History: Asthma, Eye Disorder, GERD/Reflux, Osteoarthritis (OA), Pneumonia Additional Past Medical History / Comment(s): 2001 pt fell down stairs at her workplace and has had Lumbar and cervical pain ever since with chronic headaches as well, arthritis in back, neck and fingers, diverticular disease, told once when that she had alittle coliits, PUD, bronchitis, starting of bilateral macular degeneration/glaucoma. History of Any Multi-Drug Resistant Organisms: None Reported Past Surgical History: Orthopedic Surgery Additional Past Surgical History / Comment(s): Cervical surgery x2, laproscopic surgery for ovarian cysts, EGD, colonoscopy. Past Anesthesia/Blood Transfusion Reactions: No Reported Reaction Additional Past Anesthesia/Blood Transfusion Reaction / Comment(s): Pt is slow to wake after surgery. Past Psychological History: Depression Smoking Status: Current every day smoker Past Alcohol Use History: None Reported Past Drug Use History: None Reported - Past Family History Mother Family Medical History: Hypertension Father Family Medical History: Cancer, Congestive Heart Failure (CHF) Additional Family Medical History / Comment(s): Father had lymphoma and went into CHF and at the age of 72 yrs. General Exam Limitations: no limitations Respiratory exam: Present: normal lung sounds bilaterally. Absent: respiratory distress, wheezes, rales, rhonchi, stridor Cardiovascular Exam: Present: regular rate, normal rhythm, normal heart sounds. Absent: systolic murmur, diastolic murmur, rubs, gallop, clicks Extremities exam: Present: other (Right foot distal metatarsal tenderness and mild tenderness digits 1 through 4) Course Vital Signs 04/08/23 04/08/23 09:38 11:26 Temperature 98.3 F 98.3 F Pulse Rate 97 79 Respiratory 16 18 Rate Blood Pressure 132/77 109/65 O2 Sat by Pulse 98 95 Oximetry Medical Decision Making - Medical Decision Making Was pt. sent in by a medical professional or institution (, PA, LIAISON ENGINEER, urgent care, hospital, or intermediate...) When possible be specific @ -No Did you speak to anyone other than the patient for history (EMS, parent, family, police, friend...)? What history was obtained from this source @ -No Did you review nursing and triage notes (agree or disagree)? Why? @ -I reviewed and agree with nursing and triage notes Were old charts reviewed (outside hosp., previous admission, EMS record, old EKG, old radiological studies, urgent care reports/EKG's, intermediate records)? Report findings @ -No old charts were reviewed Differential Diagnosis (chest pain, altered mental status, abdominal pain women, abdominal pain men, vaginal bleeding, weakness, fever, dyspnea, syncope, h eadache, dizziness, GI bleed, back pain, seizure, CVA, palpatations, mental health, musculoskeletal)? @ -[Foot contusion, foot fracture EKG interpreted by me (3pts min.). @ -None X-rays interpreted by me (1pt min.). @ -X-ray right foot no acute fracture or dislocation CT interpreted by me (1pt min.). @ -[None done U/S interpreted by me (1pt. min.). @ -None done What testing was considered but not performed or refused? (CT, X-rays, U/S, labs)? Why? @ -None What meds were considered but not given or refused? Why? @ -None Did you discuss the management of the patient with other professionals (pr ofessionals i.e. , PA, LIAISON ENGINEER, lab, RT, psych nurse, social sciences instructor, professor of archaeology, teacher, correctional probation officer, case fitter)? Give summary @ -No Was smoking cessation discussed for >3mins.? @ -No Was critical care preformed (if so, how long)? @ -No Were there social determinants of health that impacted care today? How? (Homelessness, low income, unemployed, alcoholism, drug addiction, transportation, low edu. Level, literacy, decrease access to med. care, [facility], rehab)? @ -No Was there de-escalation of care discussed even if they declined (Discuss DNR or withdrawal of care, Hospice)? DNR status @ -No What co-morbidities impacted this encounter? (DM, HTN, Smoking, COPD, CAD, Cancer, CVA, ARF, Chemo, Hep., AIDS, mental health diagnosis, sleep apnea, morbid obesity)? @ -None Was patient admitted / discharged? Hospital course, mention meds given and route, prescriptions, significant lab abnormalities, going to OR and other pertinent info. @ -[Patient's x-rays are negative patient is right foot contusion return parameters were discussed. Undiagnosed new problem with uncertain prognosis? @ -No Drug Therapy requiring intensive monitoring for toxicity (Heparin, Nitro, Insulin, Cardizem)? @ -No Were any procedures done? @ -No Diagnosis/symptom? @ -[Right foot contusion Acute, or Chronic, or Acute on Chronic? @ -Acute Uncomplicated (without systemic symptoms) or Complicated (systemic symptoms)? @ -Uncomplicated Side effects of treatment? @ -No Exacerbation, Progression, or Severe Exacerbation? @ -No Poses a threat to life or bodily function? How? (Chest pain, [place], NH, pneumonia, PE, COPD, DKA, ARF, appy, cholecystitis, CVA, Diverticulitis, Homicidal, Suicidal, threat to staff... and all critical care pts) @ -No Disposition Clinical Impression: Contusion of foot, right Disposition: HOME SELF-CARE Condition: Stable Instructions (If sedation given, give patient instructions): Foot Contusion (ED) Additional Instructions: Please return to the Emergency Department if symptoms worsen or any other concerns. Is patient prescribed a controlled substance at d/c from ED?: No Referrals: Randy Huntley DO [Primary Care Provider] - 1-2 days Time of Disposition: 11:10
--- NOTE | 2023-04-08 10:52 | XR ---
EXAMINATION TYPE: XR foot complete RT DATE OF EXAM: 04/08/2023 COMPARISON: 11/17/2020 HISTORY: 62-year-old female distal foot pain, crush injury, toe pain TECHNIQUE: 3 views FINDINGS: Mild hallux valgus deformity with bunion. Bipartite fibular sesamoid. No acute fracture, acevedo bluxation, or dislocation is seen. IMPRESSION: Hallux valgus with bunion. No acute osseous abnormality seen.
[2023-04-08 11:36] VITALS: BP 109/65; PULSE 79; RESP 18
== END 2023-04-08 11:28 | disposition home or self-care (01) ==
LOC: EC 09:36
DX: S90.121A Contusion of right lesser toe(s) without damage to nail, initial encounter (principal); J45.909 Unspecified asthma, uncomplicated; M19.90 Unspecified osteoarthritis, unspecified site; F32.A Depression, unspecified; F17.200 Nicotine dependence, unspecified, uncomplicated; Z79.899 Other long term (current) drug therapy; Z88.8 Allergy status to other drugs, medicaments and biological substances; W18.30XA Fall on same level, unspecified, initial encounter
CPT/HCPCS: 99283

== ENCOUNTER → 2024-08-06 | Outpatient (CLI) | payer MEDICARE ==
--- NOTE | 2024-08-06 09:46 | XR ---
EXAMINATION TYPE: XR elbow complete RT, XR forearm RT DATE OF EXAM: 08/06/2024 9:32 AM COMPARISON: None CLINICAL INDICATION: Female, 64 years old with history of M25.521 pain R elbow; PHH, pain TECHNIQUE: XR elbow complete RT, XR forearm RT; elbow was examined in AP, lateral, and oblique projec tions. Frontal and lateral views of the forearm. FINDINGS: No evidence of any acute osseous pathology, joint dislocation, or soft tissue swelling is n oted. No evidence of joint effusion is present. IMPRESSION: No evidence of acute fracture. [facility], , 08/06/2024 9:43 AM
== END | disposition home or self-care (01) ==
LOC: RADXRMAIN 09:12
PROVIDERS: ATTEND Family Medicine
DX: M25.521 Pain in right elbow (principal); M79.631 Pain in right forearm